=== PATIENT | female | born 1960 | race Caucasian/White ===

== ENCOUNTER 2020-03-07 10:55 | Outpatient (CLI) | payer OTHER, SELFPAY ==
--- NOTE | ~2020-03-07 | MM_ITS ---
EXAMINATION: MM screening amanda BI w anisha HISTORY: Screening mammogram TECHNIQUE: Craniocaudal and mediolateral oblique 3-D tomosynthesis images were obtained and synthetic 2-D images were generated. CAD analysis was submitted and interpreted. COMPARISON: No prior mammogram is available for comparison at this institution. BREAST PARENCHYMAL COMPOSITION: There are scattered areas of fibroglandular density. FINDINGS: Possible new asymmetries are noted bilaterally. Bilateral diagnostic mammography is recomme nded, with ultrasound if required. IMPRESSION: 1. Possible new bilateral mammographic asymmetries 2. Recommend bilateral diagnostic mammogram, with ultrasound if required BI-RADS Category 0: Incomplete: Needs additional imaging evaluation. Reviewed, dictated and finalized at location A.
== END 2020-03-07 10:56 | disposition home or self-care (01) ==
LOC: ANHIMG 10:59
PROVIDERS: PCP Family Medicine; Visit Provider Student in an Organized Health Care Education/Training Program
DX: Z12.31 Encounter for screening mammogram for malignant neoplasm of breast (principal)
CPT/HCPCS: 77063; 77067

== ENCOUNTER 2020-03-19 12:39 | Outpatient (CLI) | payer OTHER, SELFPAY ==
--- NOTE | ~2020-03-19 | MMUS_ITS ---
EXAMINATION: MM diagnostic mammo BI, US breast BI limited HISTORY: Follow-up breast asymmetries TECHNIQUE: Additional 3-D tomosynthesis images of the breasts were performed and synthetic 2-D images were generated. CAD analysis was submitted and interpreted. High resolution bilateral breast ultraso und was performed. COMPARISON: 03/07/2020 FINDINGS: MAMMOGRAPHIC FINDINGS: The breasts are heterogenously dense, which may obscure small masses. The focal asymmetry laterally i n the right breast on CC view is less dense with spot compression views. Focal asymmetries in the upp er central aspect of the left breast are persistent, although no discrete mass is identified. There a re benign calcifications. ULTRASOUND: Right breast ultrasound: At 10:00, 6 cm from the nipple, there is a 4 mm cyst. Left breast ultrasound: At 2:00, 6 cm from the nipple, there is a hypoechoic 3 mm mass which is likely a benign complicated c yst or intramammary lymph node. At 2:00, 5 cm from the nipple there is a 3 mm cyst. There are no susp icious masses in either breast to suggest malignancy. IMPRESSION: 1. Benign bilateral breast findings. No evidence for malignancy. 2. Routine yearly screening mammogram and regular clinical breast examination are recommended. BI-RADS Category 2: Benign finding(s). Reviewed, dictated and finalized at location A. IMPRESSION: 1. Benign bilateral breast findings. No evidence for malignancy. 2. Routine yearly screening mammogram and regular clinical breast examination a re recommended. BI-RADS Category 2: Benign finding(s).
== END 2020-03-19 12:40 | disposition home or self-care (01) ==
PROVIDERS: PCP Family Medicine; Visit Provider Student in an Organized Health Care Education/Training Program
DX: R92.8 Other abnormal and inconclusive findings on diagnostic imaging of breast (principal)
CPT/HCPCS: 76642; 77066

== ENCOUNTER 2021-05-15 10:29 | Outpatient (CLI) | payer BC, SELFPAY ==
--- NOTE | ~2021-05-15 | MM_ITS ---
EXAMINATION: MM screening amanda BI w anisha HISTORY: Screening mammogram TECHNIQUE: Craniocaudal and mediolateral oblique 3-D tomosynthesis images were obtained and synthetic 2-D images were generated. CAD analysis was submitted and interpreted. COMPARISON: 03/19/2020 diagnostic bilateral mammogram and Limited bilateral breast ultrasound examinati on 03/07/2020, 02/03/2019, 01/31/2018 bilateral digital screening mammogram examinations BREAST PARENCHYMAL COMPOSITION: The breasts are heterogeneously dense, which may obscure small masses . FINDINGS: There is no evidence of suspicious mass, calcification, or architectural distortion to sugg est malignancy in either breast. There has been no suspicious interval change. IMPRESSION: 1. No mammographic evidence of malignancy. 2. Recommend routine screening mammography in one year. BI-RADS Category 1: Negative Reviewed, dictated and finalized at location A.
== END 2021-05-15 10:30 | disposition home or self-care (01) ==
LOC: ANHIMG 10:31
PROVIDERS: PCP Family Medicine; Visit Provider Student in an Organized Health Care Education/Training Program
DX: Z12.31 Encounter for screening mammogram for malignant neoplasm of breast (principal)
CPT/HCPCS: 77063; 77067

== ENCOUNTER 2022-06-11 09:49 | Outpatient (CLI) | payer BC, SELFPAY ==
--- NOTE | ~2022-06-11 | MM_ITS ---
EXAMINATION: MM screening amanda BI w anisha HISTORY: Screening TECHNIQUE: Craniocaudal and mediolateral oblique 3-D tomosynthesis images were obtained and synthetic 2-D images were generated. CAD analysis was submitted and interpreted. COMPARISON: Comparison to multiple prior studies sequentially, with oldest reviewed study dated 01/28. BREAST PARENCHYMAL COMPOSITION: The breasts are heterogeneously dense, which may obscure small masses FINDINGS: There is no evidence of suspicious mass, calcification, or architectural distortion to sugg est malignancy in either breast. There has been no suspicious interval change. IMPRESSION: 1. No mammographic evidence of malignancy. 2. Recommend routine screening mammography in one year. BI-RADS Category 1: Negative Reviewed, dictated and finalized at location A.
== END 2022-06-11 09:50 | disposition home or self-care (01) ==
PROVIDERS: Visit Provider Student in an Organized Health Care Education/Training Program
DX: Z12.31 Encounter for screening mammogram for malignant neoplasm of breast (principal)
CPT/HCPCS: 77063; 77067

== ENCOUNTER 2022-07-09 01:32 | Day surgery (SDC) | payer BC, SELFPAY ==
[2022-06-23 13:44] VITALS: BMI 31.7
[2022-07-09 07:40] VITALS: BP 165/85; PULSE 80; RESP 20; TEMP 36.3; O2SAT 100; BMI 32.1
[2022-07-09] MEDS: LACTATED RINGERS 1,000 ML 150 ML IV CONT (07:50)
--- NOTE | 2022-07-09 08:06 | WPDANESEPPF ---
Anes - Initial Pre Proc Eval Procedure: Operation Date: 07/09/22 08:30 Proposed Procedures p Screening Colonoscopy - Davidson Cross MD Date/Time: 07/09/22 08:06 Surgeon: Davidson Cross MD Pre Op Diagnosis: neoplasm screening Patient Data Age: 61 Gender: F Height: 1.65 m Weight: 87.6 kg Last Vital Signs Temp 97.3 F L 07/09/22 07:40 Pulse 80 07/09/22 07:40 Resp 20 07/09/22 07:40 BP 165/85 H 07/09/22 07:40 Pulse Ox 100 07/09/22 07:40 O2 Del Method Room Air 07/09/22 07:40 Allergies Allergy/AdvReac Type Severity Reaction Status Date / Time mold Allergy Unknown Unknown Verified 07/09/22 07:36 ragweed pollen Allergy Unknown Unknown Verified 07/09/22 07:36 Home Medications Medication Instructions Recorded Confirmed Type calcium carbonate 600 mg calcium 600 mg PO DAILY 04/25/20 06/23/22 History (1,500 mg) tablet (Calcium) diltiazem HCl 240 mg See Rx Instructions .Route 05/13/20 06/23/22 Rx capsule,extended release 24 hr .COMPLEX #90 caps (Cartia XT) atorvastatin 20 mg tablet 20 mg PO DAILY 05/29/21 06/23/22 History levocetirizine 5 mg tablet (Xyzal) 5 mg PO DAILY 05/29/21 06/23/22 History metformin 500 mg tablet 500 mg PO DAILY 05/29/21 06/23/22 History fluconazole 100 mg tablet 100 mg PO DAILY 06/02/22 06/23/22 History sodium,potassium,mag sulfates 17.5 See Rx Instructions PO .COMPLEX 06/15/22 Rx gram-3.13 gram-1.6 gram oral soln #354 mL (Suprep Bowel Prep Kit) dextromethorphan-guaifenesin ER 60 1 tablet PO DAILY 06/23/22 06/23/22 History mg-1,200 mg tab,extend release,12hr (Mucinex DM) estradiol 0.01% (0.1 mg/gram) 1 gm vaginal WEEKLY PRN other 06/23/22 06/23/22 History vaginal cream (Estrace) Patient hx anesthesia problems: none Family hx anesthesia problems: none Results Review: All pre-operative results and documents have been reviewed as part of the pre-operative evaluation. [facility] Past Medical History Medical History Abnormal Pap smear of cervix 05/29/21, ASCUS, HPV pos ASCUS with positive high risk HPV cervical SANDY I (cervical intraepithelial neoplasia I) 2020 Diabetes mellitus High cholesterol Hypertension Surgical History Surgical History History of section x1 History of colposcopy 05/31/20, benign, CIN1 History of loop electrical excision procedure (LEEP) 2016 Family History Family History Mother Family history of hypercholesterolemia Hypertension Cerebrovascular accident Family history of type 2 diabetes mellitus Father Family history of type 2 diabetes mellitus Other Family history of coronary artery disease Social History Social History Smoking status: Former smoker Tobacco type: cigarettes Second hand tobacco smoke exposure: No Smoking end date: 10/18/06 Alcohol intake: current Drinks per week: 12 Substance use: unknown Substance use type: does not use Living arrangements: with family Spiritual care concerns: No Anes - Eval Final PreProcedure Day of Procedure 07/09/22 08:06 Patient weight: obese Heart: regular rate and rhythm Lungs: clear to auscultation Airway: Mallampati scale class II Neurological: alert and oriented Last oral intake: >/= 8 hours ASA classification: III Emergent: no Anesthetic plan: proceed Anesthesia type and monitoring: general GIVS and standard monitoring Results Review: All pre-operative results and documents have been reviewed as part of the pre-operative evaluation. Informed Consent: The patient's anesthetic plan and its attendant risks and benefits were discussed with the patient/family/POA. Questions were solicited and answers provided to the satisfaction of the patient/family/POA.
[2022-07-09 08:11] LABS: Glucose Point of Care 115 mg/dl (65-105)
--- NOTE | 2022-07-09 08:20 | PM.IMHP ---
H&P: HPI History of Present Illness Date/Time: 07/09/22 08:20 Chief Complaint: Neoplasia screening. Narrative: This is a 61-year-old white female patient presents for screening colonoscopy. Patient's current weight appetite and bowel movements are normal. She denies abdominal pain. She has had no bleeding. Family history is noncontributory. Patient's last colonoscopy 2013 was unremarkable. Past medical history significant for hemosiderosis. Currently followed by Dr Montanez, director of architecture for phlebotomies intermittently. Review of Systems Review of Systems: Review of systems noncontributory. [facility] Past Medical History Medical History Abnormal Pap smear of cervix 05/29/21, ASCUS, HPV pos ASCUS with positive high risk HPV cervical SANDY I (cervical intraepithelial neoplasia I) 2020 Diabetes mellitus High cholesterol Hypertension Surgical History Surgical History History of section x1 History of colposcopy 05/31/20, benign, CIN1 History of loop electrical excision procedure (LEEP) 2016 Family History Family History Mother Family history of hypercholesterolemia Hypertension Cerebrovascular accident Family history of type 2 diabetes mellitus Father Family history of type 2 diabetes mellitus Other Family history of coronary artery disease Social History Social History Smoking status: Former smoker Tobacco type: cigarettes Second hand tobacco smoke exposure: No Smoking end date: 10/18/06 Alcohol intake: current Drinks per week: 12 Substance use: unknown Substance use type: does not use Living arrangements: with family Spiritual care concerns: No Meds Home Medications and Allergies Home Medications Medication Instructions Recorded Confirmed Type calcium carbonate 600 mg calcium 600 mg PO DAILY 04/25/20 06/23/22 History (1,500 mg) tablet (Calcium) diltiazem HCl 240 mg See Rx Instructions .Route 05/13/20 06/23/22 Rx capsule,extended release 24 hr .COMPLEX #90 caps (Cartia XT) atorvastatin 20 mg tablet 20 mg PO DAILY 05/29/21 06/23/22 History levocetirizine 5 mg tablet (Xyzal) 5 mg PO DAILY 05/29/21 06/23/22 History metformin 500 mg tablet 500 mg PO DAILY 05/29/21 06/23/22 History fluconazole 100 mg tablet 100 mg PO DAILY 06/02/22 06/23/22 History sodium,potassium,mag sulfates 17.5 See Rx Instructions PO .COMPLEX 06/15/22 Rx gram-3.13 gram-1.6 gram oral soln #354 mL (Suprep Bowel Prep Kit) dextromethorphan-guaifenesin ER 60 1 tablet PO DAILY 06/23/22 06/23/22 History mg-1,200 mg tab,extend release,12hr (Mucinex DM) estradiol 0.01% (0.1 mg/gram) 1 gm vaginal WEEKLY PRN other 06/23/22 06/23/22 History vaginal cream (Estrace) Allergies Allergy/AdvReac Type Severity Reaction Status Date / Time mold Allergy Unknown Unknown Verified 07/09/22 07:36 ragweed pollen Allergy Unknown Unknown Verified 07/09/22 07:36 Vital Signs Vital Signs - 24 hr 07/09/22 07:40 Temperature 97.3 F L Pulse Rate 80 Respiratory Rate 20 Blood Pressure 165/85 H Pulse Oximetry 100 Oxygen Delivery Room Air Exam Narrative: Physical exam reveals patient to be alert. Vital signs stable. HEENT exam is unremarkable. Patient is anicteric. Lungs are clear to auscultation and percussion. Heart is without murmur or extra sounds. Abdomen bowel sounds are present soft nontender with no organomegaly. Digital external rectal exam is normal. Assessment and Plan Assessment and plan (1) Encounter for screening colonoscopy: Code(s): Z12.11 - Encounter for screening for malignant neoplasm of colon Status: Acute Assessment and Plan: Patient presents for screening colonoscopy. Appears to be at average ri
[2022-07-09 08:50] VITALS: BP 107/57; PULSE 71; RESP 21; O2SAT 100
[2022-07-09 09:00] VITALS: BP 136/97; PULSE 69; RESP 14; O2SAT 100
[2022-07-09 09:10] VITALS: BP 151/90; PULSE 67; RESP 16; O2SAT 100
== END 2022-07-09 09:13 | disposition home or self-care (01) ==
PROVIDERS: Visit Provider Internal Medicine Gastroenterology
PROC: 0DJD8ZZ Inspection of Lower Intestinal Tract, Via Natural or Artificial Opening Endoscopic (ICD-10-PCS; CPT 45378; principal; 2022-07-09 08:30)
DX: Z12.11 Encounter for screening for malignant neoplasm of colon (principal); K63.5 Polyp of colon; K64.8 Other hemorrhoids; E11.9 Type 2 diabetes mellitus without complications; I10 Essential (primary) hypertension; E78.00 Pure hypercholesterolemia, unspecified; Z87.891 Personal history of nicotine dependence; Z79.84 Long term (current) use of oral hypoglycemic drugs; E66.9 Obesity, unspecified; Z68.32 Body mass index [BMI] 32.0-32.9, adult
CPT/HCPCS: 45385; 82948; 88305; J2704; J7120

== ENCOUNTER 2022-08-18 10:02 | Outpatient (CLI) | payer BC, SELFPAY ==
--- NOTE | ~2022-08-18 | DEXA_ITS ---
Bone Density Report Name: ANGELA COLE Age: 62 Sex: Female Ethnicity: White Date of : 1960 Indication: postmenopausal; screening for osteoporosis; Referring Provider: DIANNA WATTERS Study: Bone densitometry was performed. Exam Date: August 18, 2022 Accession number: [id number] Bone Density: Region BMD T-score Z-score Classification AP Spine(L1-L4) 1.081 0.3 1.7 Normal Femoral Neck (Left) 0.921 0.7 1.9 Normal Total Hip (Left) 1.083 1.2 2.1 Normal Femoral Neck (Right) 0.894 0.4 1.7 Normal Total Hip (Right) 1.014 0.6 1.5 Normal Total Hip Mean 1.049 0.9 1.8 Normal World Health Organization criteria for BMD impression classify patients as: Normal (T-score at or above -1.0), Osteopenia (T-score between -1.0 and -2.5), or Osteoporosis (T-score at or below -2.5). 10-year Fracture Risk: FRAX not reported because: All T-scores for Spine Total, Hip Total, Femoral Neck at or above -1.0 Previous Exams: Region Exam Age BMD T-score BMD Change BMD Change Date g/cm2 vs Baseline vs Previous AP Spine (L1-L4) 08/18/2022 62 1.081 0.3 0.034 (3.2%)* 0.081 (8.1%)* 01/31/2018 57 1.000 -0.4 -0.048 (-4.5%) -0.048 (-4.5%) 01/24/2015 54 1.048 0.0 Total Hip(Left) 08/18/2022 62 1.083 1.2 -0.079 (-6.8%) -0.099 (-8.3%) 01/31/2018 57 1.182 2.0 0.020 (1.7%) 0.020 (1.7%) 01/24/2015 54 1.162 1.8 Total Hip(Right) 08/18/2022 62 1.014 0.6 -0.020 (-1.9%) -0.028 (-2.7%) 01/31/2018 57 1.043 0.8 0.009 (0.8%) 0.009 (0.8%) 01/24/2015 54 1.034 0.8 *Denotes significance at 95% confidence level, LSC for AP Spine = 0.022 g/cm2, LSC for Total Hip = 0.027 g/cm2 Clinical Information Provided by Patient: Has used the following medications: Calcium Patient maximum height was 65 Menopause Age: 47 No regular weight bearing exercise Onset of menses at age 15 Number of children 1 Impression: The patient has normal bone mass. The BMD for the Total Hip(Left) decreased, changing by -8.3% since the last DXA exam. The BMD for the Total Hip(Right) decreased, changing by -2.7% since the last DXA exam. Discussion: BONE DENSITY IS ABOVE THE MINIMUM DESIRABLE LEVEL AT ALL SKELETAL SITES TESTED. This patient?s bone mineral density is above the minimum desirable level (T-score -1.0 or better) at all sites measured. The patient should follow a healthful lifestyle (good nutrition with adequate calcium and vitami
== END 2022-08-18 10:03 | disposition home or self-care (01) ==
PROVIDERS: Visit Provider Student in an Organized Health Care Education/Training Program
DX: Z78.0 Asymptomatic menopausal state (principal)
CPT/HCPCS: 77080

== ENCOUNTER 2022-10-06 09:52 | Outpatient (CLI) | payer BC, SELFPAY ==
[2022-10-06 10:58] LABS: Anion Gap 8 mmol/L (8-16); Blood Urea Nitrogen 24 mg/dL (7-17); Calcium 9.9 mg/dL (8.4-10.2); Carbon Dioxide 28 mmol/L (22-30); Chloride 101 mmol/L (98-107); Estimated Glomerular Filt Rate 57; Glucose 156 mg/dL (65-110); Potassium 3.7 mmol/L (3.4-5.0); Sodium 137 mmol/L (137-145)
== END 2022-10-06 09:53 | disposition home or self-care (01) ==
PROVIDERS: Anesthesiology; Visit Provider Obstetrics & Gynecology
DX: E11.9 Type 2 diabetes mellitus without complications (principal); Z01.818 Encounter for other preprocedural examination
CPT/HCPCS: 36415; 80048

== ENCOUNTER 2022-10-21 01:26 | Day surgery (SDC) | payer BC, SELFPAY ==
[2022-10-05 15:28] VITALS: BMI 31.6
--- NOTE | 2022-10-05 15:29 | SUR.PREOP ---
Report to the Outpatient Waiting Room, entrance under the green pavilion located off [facility], at time _0715 on date _10/21/22 . Planned Procedure Time: __0915. Time changes happen often and if your time is changed the preop area will call you the afternoon before. - You and your visitor will be asked to self-screen and do not enter if you have any COVID symptoms. - Only one visitor is requested with a max of two and NO children visitors are allowed at this time. - The patient visitor may be requested to leave or wait in car when not with patient due to distancing restrictions. - A mask is optional within the hospital. Patients may have clear liquids (water, carbonated beverages, clear teas, apple juice) until 3 hours prior to surgery with a maximum of 20 ounces. - No food from midnight until time of surgery - Infants may have breast milk until 4 hours before surgery, infant formula 6 hours prior to surgery. - Children will be allowed to drink immediately following surgery. If applicable, please bring a bottle or sippy cup to assist with drinking. Juice, water, soda, and popsicles are readily available. For infants on formula, please bring formula the day of surgery. Pacifiers are allowed. Take the following medications with a SIP of water the morning of surgery: __diltiazem Medications to discontinue per physician ___calcium Date to take last dose__10/18/22 Please no make-up, nail slovak, hairspray, perfume, deodorant, or body powder the day of surgery. No jewelry (including any body piercings) or valuables the day of surgery, leave them at home. Please take a shower or bath the night before, or the morning of, surgery with an antibacterial soap. Wear comfortable, loose fitting clothing. Children are encouraged to wear pajamas. - Jewelry must be removed prior to entering the operating room. Rings and piercings that are not removed may be cut off. - The hospital will not accept responsibility for valuables. - Please leave all valuables, including medications, at home the day of surgery. If you are going home after surgery, a licensed motor driver must drive you home. - NO public transportation without another adult if you receive anesthesia. - We recommend that an adult stay with you for 24 hours following discharge. - We also recommend that you do not drive, make important decision, drink alcoholic beverages, or take any drugs that were not prescribed by your health care provider for at least 24 hours after your discharge time. For Pediatric surgeries, we recommend two adults accompany the child home. Follow any additional instructions given to you from your surgeon. If you or anyone in your household have experienced Covid symptoms in the past week, please notify your surgeon or the nurse liaison at the phone number below for possible testing. Telephone instructions given to _lydia espinoza and asked if any additional questions and then verbalized understanding. Patient advised to call surgeon office or pre surgery nurse liaison [phone] if any additional questions.
--- NOTE | 2022-10-20 14:13 | WPDANESEPPF ---
Anes - Initial Pre Proc Eval Procedure: Operation Date: 10/21/22 09:15 Proposed Procedures p Loop Electrical Excision Procedure - Aj Phelps MD Date/Time: 10/20/22 14:13 Surgeon: Aj Phelps MD Pre Op Diagnosis: ascus positive hpv Patient Data Age: 62 Gender: F Height: 1.65 m Weight: 86.36 kg Allergies Allergy/AdvReac Type Severity Reaction Status Date / Time mold AdvReac Mild Congested Verified 10/21/22 07:30 ragweed pollen AdvReac Mild Congested Verified 10/21/22 07:30 Home Medications Medication Instructions Recorded Confirmed Type calcium carbonate 600 mg calcium 600 mg PO DAILY 04/25/20 10/21/22 History (1,500 mg) tablet (Calcium) diltiazem HCl 240 mg See Rx Instructions .Route 05/13/20 10/21/22 Rx capsule,extended release 24 hr .COMPLEX #90 caps (Cartia XT) atorvastatin 20 mg tablet 20 mg PO DAILY 05/29/21 10/21/22 History levocetirizine 5 mg tablet (Xyzal) 5 mg PO DAILY 05/29/21 10/21/22 History metformin 500 mg tablet 500 mg PO DAILY 05/29/21 10/21/22 History estradiol 0.01% (0.1 mg/gram) 1 gm vaginal WEEKLY PRN other 06/23/22 10/21/22 History vaginal cream (Estrace) hydrochlorothiazide 25 mg tablet 25 mg PO DAILY 07/14/22 10/21/22 History losartan 100 mg tablet 100 mg PO DAILY 07/14/22 10/21/22 History Patient hx anesthesia problems: none Family hx anesthesia problems: none Results Review: All pre-operative results and documents have been reviewed as part of the pre-operative evaluation. [facility] Past Medical History Medical History (Updated 10/20/22 @ 14:14 by Angel Hartley MD) Abnormal Pap smear of cervix 05/29/21, ASCUS, HPV pos ASCUS with positive high risk HPV cervical SANDY I (cervical intraepithelial neoplasia I) 2020 Diabetes mellitus High cholesterol Hypertension Obesity Surgical History Surgical History History of section x1 History of colposcopy 05/31/20, benign, CIN1 History of loop electrical excision procedure (LEEP) 2016 Family History Family History Mother Family history of hypercholesterolemia Hypertension Cerebrovascular accident Family history of type 2 diabetes mellitus Father Family history of type 2 diabetes mellitus Other Family history of coronary artery disease Social History Social History Smoking status: Former smoker Tobacco type: cigarettes Second hand tobacco smoke exposure: No Smoking end date: 10/18/06 Additional smoking assessment comments: smoking cigarettes 7 years 1 ppd Alcohol intake: current Drinks per week: 20 Substance use: unknown Substance use type: does not use Living arrangements: with family Spiritual care concerns: No Anes - Eval Final PreProcedure Day of Procedure 10/20/22 14:13 Patient weight: obese Heart: regular rate and rhythm Lungs: clear to auscultation Airway: Mallampati scale class II Neurological: alert and oriented Last oral intake: >/= 8 hours ASA classification: III Emergent: no Anesthetic plan: proceed Anesthesia type and monitoring: general GIVS and LMA and standard monitoring Results Review: All pre-operative results and documents have been reviewed as part of the pre-operative evaluation. Informed Consent: The patient's anesthetic plan and its attendant risks and benefits were discussed with the patient/family/POA. Questions were solicited and answers provided to the satisfaction of the patient/family/POA.
--- NOTE | 2022-10-21 06:28 | PM.IMHP ---
H&P: HPI History of Present Illness Date/Time: 10/21/22 06:28 Chief Complaint: Persistent dysplasia. 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 She had a prior LEEP in 2016. She has had colposcopy biopsies which the last biopsy no dysplasia, TZ not obtained. Discussed possibility of a dysplastic lesion deeper in the cervix. She has been given option of continue colposcopy and biopsies if paps continue abnormal. She agrees to LEEP. Review of Systems Review of Systems: All systems reviewed & are unremarkable except as noted in HPI and below Constitutional: Constitutional: Reports no additional constitutional complaints Eyes: Eyes: Reports no additional eye complaints Cardiovascular: Cardiovascular: Reports no additional cardiovascular complaints Respiratory: Respiratory: Reports no additional respiratory complaints Gastrointestinal: Gastrointestinal: Reports no additional gastrointestinal complaints Genitourinary: Genitourinary: Reports no additional female genitourinary complaints and Reports as per HPI Integumentary/Breasts: Skin/Breast: Reports system reviewed and no additional complaints, except as docu Neurologic: Reports system reviewed and no additional complaints, except as documented Psychiatric: Psychiatric: Reports no additional psychiatric complaints Hematologic/Lymphatic: Hematologic/Lymphatic: Reports no additional hematologic/lymphatic complaints [facility] Past Medical History Medical History (Updated 10/20/22 @ 14:14 by Angel Hartley MD) Abnormal Pap smear of cervix 05/29/21, ASCUS, HPV pos ASCUS with positive high risk HPV cervical SANDY I (cervical intraepithelial neoplasia I) 2020 Diabetes mellitus High cholesterol Hypertension Obesity Surgical History Surgical History History of section x1 History of colposcopy 05/31/20, benign, CIN1 History of loop electrical excision procedure (LEEP) 2016 Family History Family History Mother Family history of hypercholesterolemia Hypertension Cerebrovascular accident Family history of type 2 diabetes mellitus Father Family history of type 2 diabetes mellitus Other Family history of coronary artery disease Social History Social History Smoking status: Former smoker Tobacco type: cigarettes Second hand tobacco smoke exposure: No Smoking end date: 10/18/06 Additional smoking assessment comments: smoking cigarettes 7 years 1 ppd Alcohol intake: current Drinks per week: 20 Substance use: unknown Substance use type: does not use Living arrangements: with family Spiritual care concerns: No Meds Home Medications and Allergies Home Medications Medication Instructions Recorded Confirmed Type calcium carbonate 600 mg calcium 600 mg PO DAILY 04/25/20 10/06/22 History (1,500 mg) tablet (Calcium) diltiazem HCl 240 mg See Rx Instructions .Route 05/13/20 10/06/22 Rx capsule,extended release 24 hr .COMPLEX #90 caps (Cartia XT) atorvastatin 20 mg tablet 20 mg PO DAILY 05/29/21 10/06/22 History levocetirizine 5 mg tablet (Xyzal) 5 mg PO DAILY 05/29/21 10/06/22 History metformin 500 mg tablet 500 mg PO DAILY 05/29/21 10/06/22 History estradiol 0.01% (0.1 mg/gram) 1 gm vaginal WEEKLY PRN other 06/23/22 10/06/22 History vaginal cream (Estrace) hydrochlorothiazide 25 mg tablet 25 mg PO DAILY 07/14/22 10/06/22 History losartan 100 mg tablet 100 mg PO DAILY 07/14/22 10/06/22 History Allergies Allergy/AdvReac Type Severity Reaction Status Date / Time mold AdvReac Mild Congested Verified 10/21/22 07:30 ragweed pollen AdvReac Mild Congested Verified 10/21/22 07:30 Exam Const: General: comfortable and no acute distress Orientation/consciousness: oriented to perso
[2022-10-21 07:26] VITALS: BP 175/82; PULSE 89; RESP 18; TEMP 36.3; O2SAT 99
--- NOTE | 2022-10-21 07:35 | WPDHPUPDATE1 ---
History and Physical Update Update Date/Time: 10/21/22 07:35 History and Physical has been reviewed, including an updated exam of the patient. There are NO changes in the patient's condition. Risks, benefits, and alternatives have been discussed and questions answered. Patient agrees to proceed with procedure.
[2022-10-21] MEDS: LACTATED RINGERS 1,000 ML 30 ML IV CONT (07:44)
[2022-10-21] MEDS: ACETAMINOPHEN 500 MG TABLET 1000 MG PO (07:45)
[2022-10-21 07:48] LABS: Glucose Point of Care 169 mg/dl (65-105)
[2022-10-21] MEDS: ceFAZolin 2 GM/D5W 50 ML 2 GM/50 ML BAG IVPB (09:20)
[2022-10-21 09:50] VITALS: BP 101/52; PULSE 71; RESP 16; O2SAT 94
--- NOTE | 2022-10-21 09:50 | PM.OP ---
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 LEEP 2. LEEP endocervical) Complications: No immediate complications Condition: Stable Disposition: Same day
[2022-10-21 09:55] LABS: Glucose Point of Care 172 mg/dl (65-105)
[2022-10-21 10:14] VITALS: BP 113/57; PULSE 65; RESP 16
[2022-10-21 10:35] VITALS: BP 140/68
--- NOTE | 2022-10-21 21:35 | W.PM.PROC2 ---
Procedure Note - Detailed Date of Procedure 10/21/22 Pre-op Diagnosis Persistent low grade pap smear. Post-op Diagnosis Same Procedure Performed Loop electrosurgical excision procedure Surgeon Aj Phelps MD Anesthesia MAC and Local Description of Procedure The patient was taken to the OR where adequate IV sedation was administered. She was then prepped and draped in the usual sterile fashion and placed in the dorsal lithotomy position. A Graves speculum was placed in the vagina. Lugol?s solution was painted along the entire cervix and vaginal wall. No significant areas of non-uptake were noted to be around the entire squamocolumnar junction. 10 cc of lidocaine with epinephrine was injected at surgical site. The large loop electrode was used to enclose the external cervical os. The smallest loop electrode was used to obtain a top hat for excision of the endocervix. The bed of the excised cervical tissue along the cervix was cauterized using the roller ball. Hemostasis was noted. All instruments were removed from vagina at this point. The patient tolerated the procedure well without complication and was taken to the recovery room in stable condition. Estimated Blood Loss 5 Drains No Packing No Pathology Yes (LEEP, LEEP endocervix) Complications No immediate complications Condition Stable Disposition Same day [facility] Billing Surgery - Charge Forward: Surgery Billing
== END 2022-10-21 10:50 | disposition home or self-care (01) ==
PROVIDERS: Visit Provider Obstetrics & Gynecology
PROC: 0UBC7ZZ Excision of Cervix, Via Natural or Artificial Opening (ICD-10-PCS; CPT 57522; principal; 2022-10-21 09:15)
DX: N87.0 Mild cervical dysplasia (principal); I10 Essential (primary) hypertension; E11.9 Type 2 diabetes mellitus without complications; E78.00 Pure hypercholesterolemia, unspecified; E66.9 Obesity, unspecified; Z68.33 Body mass index [BMI] 33.0-33.9, adult; Z79.84 Long term (current) use of oral hypoglycemic drugs; Z87.891 Personal history of nicotine dependence
CPT/HCPCS: 57522; 82948; 88307; A9270; J0690; J2704; J3010; J7120

== ENCOUNTER 2023-09-20 09:59 | Outpatient (CLI) | payer BC, SELFPAY ==
--- NOTE | ~2023-09-20 | MM_ITS ---
EXAMINATION: MM screening [facility] BI w anisha HISTORY: Screening mammogram TECHNIQUE: Craniocaudal and mediolateral oblique 3-D tomosynthesis images were obtained and synthetic 2-D images were generated. CAD analysis was submitted and interpreted. COMPARISON: 06/11/2022, 05/15/2021, 03/19/2020, 03/07/2020 BREAST PARENCHYMAL COMPOSITION: There are scattered areas of fibroglandular density. FINDINGS: No suspicious mass, calcification, or architectural distortion are identified in either sim ast to suggest malignancy. There has been no suspicious interval change. IMPRESSION: 1. No mammographic evidence of malignancy. 2. Recommend routine screening mammography in one year. BI-RADS Category 1: Negative Reviewed, dictated and finalized at location A. ANET SUPPORT
== END 2023-09-20 10:00 | disposition home or self-care (01) ==
LOC: ANHIMG 10:01
PROVIDERS: Visit Provider Obstetrics & Gynecology
DX: Z12.31 Encounter for screening mammogram for malignant neoplasm of breast (principal)
CPT/HCPCS: 77063; 77067

== ENCOUNTER 2024-09-25 13:55 | Outpatient (CLI) | payer BC, SELFPAY ==
--- NOTE | ~2024-09-25 | MM_ITS ---
EXAMINATION: MM screening [facility] BI w anisha HISTORY: Screening TECHNIQUE: Craniocaudal and mediolateral oblique 3-D tomosynthesis images were obtained and synthetic 2-D images were generated. CAD analysis was submitted and interpreted. COMPARISON: Comparison to multiple prior studies sequentially, with oldest reviewed study dated 02/03. BREAST PARENCHYMAL COMPOSITION: Dense: The breasts are heterogeneously dense, which may obscure small masses FINDINGS: There is no evidence of suspicious mass, calcification, or architectural distortion to sugg est malignancy in either breast. There has been no suspicious interval change. IMPRESSION: 1. No mammographic evidence of malignancy. 2. Recommend routine screening mammography in one year. BI-RADS Category 1: Negative Reviewed, dictated and finalized at location B. ITY SPECIALIST
== END 2024-09-25 13:56 | disposition home or self-care (01) ==
LOC: ANHIMG 13:57
PROVIDERS: PCP Nurse Practitioner Family; Visit Provider Obstetrics & Gynecology
DX: Z12.31 Encounter for screening mammogram for malignant neoplasm of breast (principal)
CPT/HCPCS: 77063; 77067

== ENCOUNTER 2025-10-08 13:27 | Outpatient (CLI) | payer BC, SELFPAY ==
--- NOTE | ~2025-10-08 | DEXA_ITS ---
Bone Density Report Name: ANGELA COLE Age: 65 Sex: Female Ethnicity: White Date of : 1960 Indication: postmenopausal; screening for osteoporosis; parental hip fracture; Referring Provider: NAOMIE CARRERO Study: Bone densitometry was performed. Exam Date: October 08, 2025 Accession number: [id number] Bone Density: Region BMD T-score Z-score Classification AP Spine(L1-L4) 1.092 0.4 2.0 Normal Femoral Neck (Left) 0.845 0.0 1.4 Normal Total Hip (Left) 0.956 0.1 1.2 Normal Femoral Neck (Right) 0.871 0.2 1.6 Normal Total Hip (Right) 0.918 -0.2 0.9 Normal Total Hip Mean 0.937 -0.1 1.1 Normal World Health Organization criteria for BMD impression classify patients as: Normal (T-score at or above -1.0), Osteopenia (T-score between -1.0 and -2.5), or Osteoporosis (T-score at or below -2.5). 10-year Fracture Risk: FRAX not reported because: All T-scores for Spine Total, Hip Total, Femoral Neck at or above -1.0 Previous Exams: Region Exam Age BMD T-score BMD Change BMD Change Date g/cm2 vs Baseline vs Previous AP Spine (L1-L4) 10/08/2025 65 1.092 0.4 0.044 (4.2%)* 0.011 (1.0%) 08/18/2022 62 1.081 0.3 0.034 (3.2%)* 0.081 (8.1%)* 01/31/2018 57 1.000 -0.4 -0.048 (-4.5%) -0.048 (-4.5%) 01/24/2015 54 1.048 0.0 Total Hip(Left) 10/08/2025 65 0.956 0.1 -0.206 (-17.7% -0.127 (-11.7% 08/18/2022 62 1.083 1.2 -0.079 (-6.8%) -0.099 (-8.3%) 01/31/2018 57 1.182 2.0 0.020 (1.7%) 0.020 (1.7%) 01/24/2015 54 1.162 1.8 Total Hip(Right) 10/08/2025 65 0.918 -0.2 -0.115 (-11.2% -0.096 (-9.4%) 08/18/2022 62 1.014 0.6 -0.020 (-1.9%) -0.028 (-2.7%) 01/31/2018 57 1.043 0.8 0.009 (0.8%) 0.009 (0.8%) 01/24/2015 54 1.034 0.8 *Denotes significance at 95% confidence level, LSC for AP Spine = 0.022 g/cm2, LSC for Total Hip = 0.027 g/cm2 Clinical Information Provided by Patient: Parent has had a hip fracture Has used the following medications: Calcium Patient maximum height was 65 Menopause Age: 47 No regular weight bearing exercise Does not regularly consume dairy products Drinks caffeinated beverages Onset of menses at age 15 Number of children 1 Impression: The patient has normal bone mass. The patient has risk factors, including: parental hip fracture. The BMD for the Total Hip(Left) decreased, changing by -11.7% since the last DXA exam. The BMD for the Total Hip(Right) decreased, changing by -9.4% since the last DXA exam. Discussion: BONE DENSITY IS ABOVE THE MINIMUM DESIRABLE LEVEL AT ALL SKELETAL SITES TESTED. This patient?s bone mineral density is above the minimum desirable level (T-score -1.0 or better) at all sites measured. The patient should follow a healthful lifestyle (good nutrition with adequate calcium and vitamin D, and appropriate weight-bearing exercise). Follow-Up: Consider repeating this study in 3 to 4 years to reassess this patient's status, or sooner if there is some new clinical indication. Reported by: BETINA on 10/08/2025 2:09:00 PM. Reviewed, dictated and finalized at location A.
--- OUTSIDE RECORDS SUMMARY | 2025-10-08 15:11 | XMS_ITS | Encounter Summary ---
Author Organization [facility] System Address [facility] [place] [address] Care Team Providers Care Tool Crib Attendant Name Role Phone Inés Lewis BUSINESS SOLUTIONS ANALYST Primary Care Provider Edith Rahman BUSINESS SOLUTIONS ANALYST Primary Care Provider [phone] Encounter Details Date Type Department Care Team (Late st Contact Info) Description 02/28/2024 [employer] Message Enc [address] [place], [place] [id number] Inés Lewis, BUSINESS SOLUTIONS ANALYST Diabetes shot medicine Social History Tobacco Use Types Packs/Day Years Used Date Smoking Tobacco: Former Smokeless Tobacco: Never Comments:10 years ago Alcohol Use Standard Drinks/Week Comments Yes 20 (1 standard drink = 0.6 oz pu re alcohol) AUDIT-C Answer Date Recorded Q1: How often do you have a drink containing alc ohol? 2-3 times a week 02/05/2021 Q2: How many drinks containi ng alcohol do you have on a typical day when you are drinking? 5 or 6 02/05/2021 Q3: How often do you have si x or more drinks on one occasion? Monthly 02/05/2021 PHQ-2 Answer Date Recorded Patient Health Questionnaire-2 Score 0 02/03/2023 Comments No Sex and Gender Information Value Date Recorded Sex Assigned at Female 02/21/2025 10:09 AM CDT Legal Sex Female 7:08 PM CDT Gender Identity Not on file Sexual Orientation Not on file documented as of this encounter Plan of Treatment Not on file documented as of this encounter Visit Diagnoses Not on filedocumented in this encounter Additional Health Concerns Infection Onset Date Last Indicated Resolved Time COVID-19 Rule Out 10/26/2024 10/26/2024 10/26/2024 10:16 AM CHIEF RISK OFFICER Assessment Noted Time PHQ-9 Depression Total Score: 0 12/03/19 10:10 AM CHIEF RISK OFFICER documented as of this encounter Care Teams Tool Crib Attendant Relationship Specialty Start Date End Date Inés Lewis FNP PCP - General FAMILY PRACTICE 07/09/20 05/16/24 Edith Bradley FNP PCP - General Nurse Practitioner Family 05/17/24 documented as of this encounter
--- OUTSIDE RECORDS SUMMARY | 2025-10-08 15:11 | XMS_ITS | Encounter Summary ---
Author Organization [facility] System Address [facility] [place] [address] Care Team Providers Care Staging Technician Name Role Phone Inés Lewis FLUE DUST LABORER Primary Care Provider Edith Rahman FLUE DUST LABORER Primary Care Provider [phone] Encounter Details Date Type Department Care Team (Late st Contact Info) Description 06/02/[address] [id number] Inés Lewis, FLUE DUST LABORER Social History Tobacco Use Types Packs/Day Years Used Date Smoking Tobacco: Former Smokeless Tobacco: Never Comments:10 years ago Alcohol Use Standard Drinks/Week Comments Yes 0 (1 standard drink = 0.6 oz pur e alcohol) AUDIT-C Answer Date Recorded Q1: How often do you have a drink containing alc ohol? 2-3 times a week 02/05/2021 Q2: How many drinks containi ng alcohol do you have on a typical day when you are drinking? 5 or 6 02/05/2021 Q3: How often do you have si x or more drinks on one occasion? Monthly 02/05/2021 PHQ-2 Answer Date Recorded PHQ-2 Score - If the patient scores above 3, please move on to questions 3-9 0 06/03/2022 Comments No Sex and Gender Information Value Date Recorded Sex Assigned at Female 02/21/2025 10:09 AM CDT Legal Sex Female 7:08 PM CDT Gender Identity Not on file Sexual Orientation Not on file COVID-19 Exposure Response Date Recorded In the last 10 days, have yo u been in contact with someone who was confirmed or suspected to have Coronavirus/COVID-19? No / Unsure 06/03/2022 9:48 AM CDT documented as of this encounter Plan of Treatment Not on file documented as of this encounter Visit Diagnoses Not on filedocumented in this encounter Additional Health Concerns Infection Onset Date Last Indicated Resolved Time COVID-19 Rule Out 10/26/2024 10/26/2024 10/26/2024 10:16 AM PROOF LOAD MECHANIC Assessment Noted Time PHQ-9 Depression Total Score: 0 12/03/19 10:10 AM PROOF LOAD MECHANIC documented as of this encounter Care Teams Staging Technician Relationship Specialty Start Date End Date Inés Lewis FNP PCP - General FAMILY PRACTICE 07/09/20 05/16/24 Edith Bradley FNP PCP - General Nurse Practitioner Family 05/17/24 documented as of this encounter
--- OUTSIDE RECORDS SUMMARY | 2025-10-08 15:11 | XMS_ITS | Encounter Summary ---
Author Organization [facility] System Address [facility] [place] [address] Care Team Providers Care Towel Rolling Machine Operator Name Role Phone Richard Lewiscesario Loera HOSPICE CARE TRANSITIONS COORDINATOR Primary Care Provider Edith Rahman HOSPICE CARE TRANSITIONS COORDINATOR Primary Care Provider [phone] Encounter Details Date Type Department Care Team (Late st Contact Info) Description 11/30/2020 [employer] Message Enc [address] [phone] Ivelisse Cleaning FNP RE: Test Results Social History Tobacco Use Types Packs/Day Years Used Date Smoking Tobacco: Former Smokeless Tobacco: Never Comments:10 years ago Alcohol Use Standard Drinks/Week Comments Yes 0 (1 standard drink = 0.6 oz pur e alcohol) PHQ-2 Answer Date Recorded PHQ-2 Score 0 07/09/2020 Comments No Sex and Gender Information Value Date Recorded Sex Assigned at Female 02/21/2025 10:09 AM CDT Legal Sex Female 7:08 PM CDT Gender Identity Not on file Sexual Orientation Not on file COVID-19 Exposure Response Date Recorded In the last month, have you been in contact with someone who was confirmed or suspected to have Coronavirus / COVID-19? No / Unsure 11/29/2020 10:49 AM BRUSH FILLER HAND documented as of this encounter Plan of Treatment Not on file documented as of this encounter Visit Diagnoses Not on filedocumented in this encounter Additional Health Concerns Infection Onset Date Last Indicated Resolved Time COVID-19 Rule Out 11/29/2020 11/29/2020 11/30/2020 4:30 PM BRUSH FILLER HAND COVID-19 Rule Out 10/26/2024 10/26/2024 10/26/2024 10:16 AM BRUSH FILLER HAND documented as of this encounter Care Teams Towel Rolling Machine Operator Relationship Specialty Start Date End Date Inés Lewis FNP PCP - General FAMILY PRACTICE 07/09/20 05/16/24 Edith Bradley FNP PCP - General Nurse Practitioner Family 05/17/24 documented as of this encounter
--- OUTSIDE RECORDS SUMMARY | 2025-10-08 15:11 | XMS_ITS | Clinical Summary ---
Author Organization [facility] Address [address] [place] [address] Care Team Providers Care Brick Offbearer Name Role Phone Francesco MontanezElizabeth DO Unavailable [phone] Inés Lewis ECONOMIC DEVELOPMENT COORDINATOR Primary Care Provider + Allergies No known active allergies Medications olopatadine (PATADAY) 0.2 % ophthalmic solution INSTILL 1 DROP INTO EACH EYE ONCE DAILY 12 07/10/20 19 Active calcium carbonate (OS-ALMAS) 1,500 mg (600 mg of elemental calcium) tablet Take 600 mg by mouth daily Active guaiFENesin-d extromethorph an ER (MUCINEX DM) 600-30 mg tablet extended release 12 hr Take 1 tablet by mouth daily Active hydroCHLOROth iazide (HYDRODIURIL) 25 mg tablet Take 1 tablet (25 mg total) by mouth daily 07/19/20 20 Active losartan (COZAAR) 100 mg tablet Take 1 tablet (100 mg total) by mouth daily 07/19/20 20 Active atorvastatin (LIPITOR) 20 mg tablet 08/31/20 21 Active metFORMIN XR (GLUCOPHAGE XR) 500 mg 24 hr tablet 09/07/20 21 Active azelastine (ASTELIN) 137 mcg (0.1 %) nasal spray Administer 1 spray into affected nostril(s) 2 (two) times a day 12/06/19 24 Active Farxiga 10 mg tablet Take 1 tablet (10 mg total) by mouth daily 09/06/20 24 Active estradioL (ESTRACE) 0.01 % (0.1 mg/gram) vaginal cream as needed 08/04/20 Active fexofenadine (CAROLINE) 180 mg tablet Take 1 tablet (180 mg total) by mouth daily 12/06/19 Active polyethylene glycol (MIRALAX) 17 gram/dose bulk powder Take 17 g by mouth daily 07/22/20 Active potassium chloride ER 20 mEq CR tablet Take 1 tablet (20 mEq total) by mouth daily 07/22/20 Active Mounjaro 5 mg/0.5 mL pen injector INJECT 1 SYRINGE SUBCUTANEOUSLY ONCE A WEEK Active diltiazem (TIAZAC) 240 mg 24 hr capsule Take 1 capsule (240 mg total) by mouth daily 09/06/20 Active fluconazole (DIFLUCAN) 150 mg tablet TAKE 2 TABLETS BY MOUTH EVERY WEEK 09/14/202024 Discontinued Active Problems Problem Noted Date Diagnosed Date Hemochromatosis, hereditary 08/28/2020 Elevated ferritin level 08/09/2019 Encounters Date Type Department Care Team Description 09/28/2025 9:00 AM MINE INSPECTOR FEDERAL Office Visit [facility] [address] [place] [phone] Reynaldo Griffin PA Hemochromatosis, hereditary (Primary Dx) 09/28/2025 8:30 AM MINE INSPECTOR FEDERAL Lab [facility] [address] [address] Hemochromatosis, hereditary from Last 3 Months Immunizations Immunization Administration Dates Next Due TD Preservative Free 05/25/2016 Tdap 07/01/2006 Surgical History Surgery Date Site/Laterality Comments SECTION COLON SURGERY Medical History Medical History Date Comments Hypertension Hypercholesteremia Seasonal allergic rhinitis Family History Medical History Relation Name Comments Testicular cancer Brother Heart attack Father Stroke Father Relation Name Status Comments Brother Father Mother Social History Tobacco Use Types Packs/Day Years Used Date Smoking Tobacco: Former Cigarettes 0.1 7 1 997 - 2004 Smokeless Tobacco: Never Alcohol Use Standard Drinks/Week Comments Yes 0 (1 standard drink = 0.6 oz pur e alcohol) AUDIT-C Answer Date Recorded Q1: How often do you have a drink containing alc ohol? Monthly or less 09/28/2025 Q2: How many drinks containi ng alcohol do you have on a typical day when you are drinking? 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 on file Not on file Not on file Last Filed Vital Signs Vital Sign Reading Time Taken Comments Blood Pressure 132/80 09/28/2025 9:26 AM MINE INSPECTOR FEDERAL Pulse 82 09/28/2025 9:26 AM MINE INSPECTOR FEDERAL Temperature 36.7 C (98.1 F) 09/28/2025 9:26 AM MINE INSPECTOR FEDERAL Respiratory Rate 18 09/28/2025 9:26 AM MINE INSPECTOR FEDERAL Oxygen Saturation 98% 09/28/2025 9:26 AM MINE INSPECTOR FEDERAL Inhaled Oxygen Concentration - - Weight 75.4 kg (166 lb 3.6 oz) 09/28/2025 9:26 A M MINE INSPECTOR FEDERAL Height 170 cm (5' 6.93) 09/28/2025 9:26 AM MINE INSPECTOR FEDERAL Body Mass Index 26.09 09/28/2025 9:26 AM MINE INSPECTOR FEDERAL Plan of Treatment Health Maintenance Due Date Last Done Comments Breast Cancer Screening-Mammogram 1960 Cervical Cancer Screening 1960 Colon Cancer Screening-Colonoscopy 1960 Depression Screening 1960 Hepatitis C Screening 1960 Hepatitis B Screening 1980 Regular Well Visit/Exam 18-64 1980 Influenza Vaccine (#1) 2025 DTaP/Tdap/Td Vaccine (3 - Td or Tdap) 05/25/2026 05/25/2016, 07/01/2006 Zoster Vaccine Completed 06/29/2022, 04/30/2022 Pneumococcal vaccine <65 Aged Out No longer eligible based on patient's age to complete this topic Procedures Procedure Name Priority Date/Time Associated Diagnosis Comments DIFFERENTIAL AUTO Routine 09/28/2025 9:1 3 AM MINE INSPECTOR FEDERAL Hemochromatosis, hereditary CBC WITH AUTO DIFFERENTIAL Routine 09/28/2025 9:13 AM MINE INSPECTOR FEDERAL Hemochromatosis, hereditary FERRITIN Routine 09/28/2025 9:13 AM MINE INSPECTOR FEDERAL Hemochromatosis, hereditary from Last 3 Months Results * Differential, auto (09/28/2025 9:13 AM MINE INSPECTOR FEDERAL) Neutrophil abs 3.76 1.50 - 6.50 K/cumm Comment:Testing performed by : [address] [address] Imm gran abs 0.05 0.00 - 0.10 K/cumm [facility] Comment:Testing performed by : [address] [address] Lymphocyte abs 1.22 0.80 - 3.30 K/cumm [facility] Comment:Testing performed by : [address] [address] Monocyte abs 0.33 0.20 - 0.80 K/cumm [facility] Comment:Testing performed by : [address] [address] Eosinophil abs 0.10 0.00 - 0.50 K/cumm [facility] Comment:Testing performed by : [address] [address] Basophil abs 0.04 0.00 - 0.10 K/cumm [facility] Comment:Testing performed by : [address] [address] Neutrophil pct 68.4 % [facility] Comment: Interpretive Data Percent cell count reference ranges are not reported, since discordance with absolute values may lead to misinterpretation of CBC data. Current Interpretive Data was last revised on 2018. Testing performed by: [address] [address] Imm gran pct 0.9 % [facility] Comment: Interpretive Data Percent cell count reference ranges are not reported, since discordance with absolute values may lead to misinterpretation of CBC data. Current Interpretive Data was last revised on 2018. Testing performed by: [address] [address] Lymphocyte pct 22.2 % [facility] Comment: Interpretive Data Percent cell count reference ranges are not reported, since discordance with absolute values may lead to misinterpretation of CBC data. Current Interpretive Data was last revised on 2018. Testing performed by: [address] [address] Monocyte pct 6.0 % [facility] Comment: Interpretive Data Percent cell count reference ranges are not reported, since discordance with absolute values may lead to misinterpretation of CBC data. Current Interpretive Data was last revised on 2018. Testing performed by: [address] [address] Eosinophil pct 1.8 % [facility] Comment: Interpretive Data Percent cell count reference ranges are not reported, since discordance with absolute values may lead to misinterpretation of CBC data. Current Interpretive Data was last revised on 2018. Testing performed by: [address] [address] Basophil pct 0.7 % [facility] Comment: Interpretive Data Percent cell count reference ranges are not reported, since discordance with absolute values may lead to misinterpretation of CBC data. Current Interpretive Data was last revised on 2018. Testing performed by: [address] [address] Blood 09/28/2025 9:13 AM MINE INSPECTOR FEDERAL 09/28/2025 9:16 AM MINE INSPECTOR FEDERAL us Francesco Montanez DO LAB BLOOD ORDERABLES Final R esult [facility] [address] [facility] Department [place] [address] * (ABNORMAL) CBC with auto differential (09/28/2025 9:13 AM MINE INSPECTOR FEDERAL) WBC 5.50 3.80 - 9.90 K/cumm Comment:Testing performed by : [address] [address] Hgb 13.2 11.9 - 15.5 g/dL [facility] Comment:Testing performed by : [address] [address] Hct 35.2(L) 35.6 - 45.5 % [facility] Comment:Testing performed by : [address] [address] Plt 157 150 - 400 K/cumm [facility] Comment:Testing performed by : [address] [address] MPV 9.2 9.1 - 12.3 fL [facility] Comment:Testing performed by : [address] [address] RBC 4.02 3.90 - 5.20 M/cumm [facility] Comment:Testing performed by : [address] [address] MCV 87.6 81.3 - 96.4 fL [facility] Comment:Testing performed by : [address] [address] MCH 32.8 27.1 - 33.3 pg [facility] Comment:Testing performed by : [address] [address] MCHC 37.5(H) 32.3 - 35.7 g/dL [facility] Comment:Testing performed by : [address], [address] RDW CV 12.4 11.1 - 14.9 % [facility] Comment:Testing performed by : [address] [address] RDW SD 39.8 35.7 - 48.1 fL [facility] Comment:Testing performed by : [address] [address] NRBC abs 0.00 0.00 - 0.01 K/cumm [facility] Comment:Testing performed by : [address] [address] ANC Prelim 3.76 1.50 - 6.50 K/cumm [facility] Comment: Interpretive Data The rapid ANC is a preliminary automated count and may vary from the final ANC (Neut Abs) reported in the WBC differential that follows. Current interpretive data was last revised 2025. Testing performed by: [address] [address] Blood 09/28/2025 9:13 AM MINE INSPECTOR FEDERAL 09/28/2025 9:16 AM MINE INSPECTOR FEDERAL Francesco Montanez DO LAB BLOOD ORDERABLES Final R [facility] Performing Organization Address City/[facility] Co de Phone Number [facility] [address] [place] [place] [address] * (ABNORMAL) Ferritin (09/28/2025 9:13 AM MINE INSPECTOR FEDERAL) Ferritin 160(H) 13 - 150 ng/mL Comment:Testing performed by : [facility], [address] [place] [address], [place]., [address] Blood 09/28/2025 9:13 AM MINE INSPECTOR FEDERAL 09/28/2025 11:45 AM MINE INSPECTOR FEDERAL Francesco Montanez DO LAB BLOOD ORDERABLES Final R [facility] Performing Organization Address [facility] Co de Phone Number [facility] [address] [place] [employer] [place] [address] from Last 3 Months Insurance [place] * Guarantor: Kayleen Hess Account Type Relation to Patient Date of Phone Billing Address Personal/Family Self 1960 [id number] [facility] [address] [place] [address] [employer] [place] Care Teams Brick Offbearer Relationship Specialty Start Date End Date Inés Lewis NP [address] [place] [phone] PCP - General Family Practice 10/07/22 Francesco Montanez DO [address] [place] [id number] Medical Oncologist/Marketing Program Coordinator Hematology and Oncology 08/16/19
--- OUTSIDE RECORDS SUMMARY | 2025-10-08 15:11 | XMS_ITS | Clinical Summary ---
Author Organization [facility] Address [address] [place] [address] Care Team Providers Care Instructor Modeling Name Role Phone Edith Bradley DAT Primary Care Provider [phone] Allergies No known active allergies Medications Calcium Carbonate-Vit D-Min (CALTRATE 600+D PLUS MINERALS) 600-800 MG-UNIT Tab Take 1 tablet by mouth. Active fexofenadine (CAROLINE) 180 MG tablet Take 1 tablet (180 mg total) by mouth daily. 90 tablet 1 4 Active polyethylene glycol (MIRALAX) 17 GM/SCOOP powderIndications:C onstipation by delayed colonic transit Take 17 g by mouth daily. Dissolve powder in 240 mL water 255 g 4 Active estradiol (ESTRACE) 0.1 MG/GM vaginal cream as needed. 4 Active hydrOXYzine (ATARAX) 25 MG tabletIndications:F ear of flying Take 1 tablet (25 mg total) by mouth daily as needed for Anxiety (fear of flying). 5 tablet 5 Active atorvastatin (LIPITOR) 40 MG tabletIndications:M ixed hyperlipidemia Take 1 tablet (40 mg total) by mouth nightly at bedtime. 90 tablet 1 5 Active dilTIAZem ER (TIAZAC) 240 MG 24 hr capsuleIndications: Essential hypertension Take 1 capsule (240 mg total) by mouth daily. 90 capsule 1 5 Active FARXIGA 10 MG tabletIndications:D iabetes mellitus in remission,CKD stage 3 due to type 2 diabetes mellitus (CMS/HCC HHS/HCC) Take 1 tablet (10 mg total) by mouth daily. 90 tablet 1 5 Active losartan (COZAAR) 100 MG tabletIndications:E ssential hypertension Take 1 tablet (100 mg total) by mouth daily. 90 tablet 1 5 Active potassium chloride CR (KLOR-CON M) 20 MEQ tabletIndications:D iuretic-induced hypokalemia Take 1 tablet (20 mEq total) by mouth daily. 90 tablet 1 5 Active tirzepatide (MOUNJARO) 5 MG/0.5ML injectionIndication s:Diabetes Mellitus Inject 5 mg into the skin once a week. Indications: Diabetes 3 mL 5 5 Active azelastine 0.1 % nasal sprayIndications:Se asonal allergic rhinitis due to other allergic trigger 1 spray by Nasal route 2 (two) times daily. 30 mL 1 5 Active Active Problems Problem Noted Date Diagnosed Date Constipation by delayed colonic transit 07/19/20 24 Diuretic-induced hypokalemia 05/10/2023 CKD stage 3 due to type 2 diabetes mellitus 01/16 History of colon polyps 11/30/2022 Type 2 diabetes mellitus wit hout complication, without long-term current use of insulin 02/05/2021 Allergic rhinitis, unspecifi ed seasonality, unspecified trigger 02/05/2021 Hemochromatosis, hereditary 08/28/2020 Essential hypertension 07/09/2020 Mixed hyperlipidemia 07/09/2020 Elevated ferritin level 08/09/2019 Resolved Problems Problem Noted Date Diagnosed Date Resolved Date Type 2 diabetes mellitus wit h hyperglycemia, without long-term current use of insulin 02/03/2023 02/21/2025 Encounters Date Type Department Care Team Description 08/27/2025 MyChart Message Enc [address] [place] [address] Edith Bradley FNP Pneumonia shot 07/17/2025 8:00 AM CDT Office Visit [address] [place] [address] Edith Bradley FNP Follow Up (Pt is here for a 6mo f/u, Pt states she is doing well) 07/17/2025 Scan [facility] Scanned, Doc [facility] 07/17/[address] [place] [address] Edith Bradley FNP Prior Authorization ([place] request Mounjaro 5 mg) 07/17/2025 Travel from Last 3 Months Immunizations Immunization Administration Dates Next Due MODERNA COVID-19, 6-11 Prima ry (DARK BLUE CAP) (previous 18+ monovalent booster), mRNA, LNP-S,PF, 50 mcg/ 0.50mL dose 04/08/2021,03/11/2021 Pneumococcal (Capvaxive - PCV 21) 08/27/2025 Shingrix 06/29/2022,04/30/2022 Td (Generic) 05/25/2016 Td (Tenivac) preservative free 05/25/2016 Td, Adsorbed, Preservative F ree, Adult Use, Lf Unspecified 05/25/2016 Tdap (Generic) 07/01/2006 Family History Medical History Relation Comments Diabetes Father Hypertension Father [place] Father at 62 Stroke Father Diabetes Mother Hypertension Mother Relation Status Comments Father Mother Social History Tobacco Use Types Packs/Day Years Used Date Smoking Tobacco: Former Smokeless Tobacco: Never Tobacco Cessation:Counseling Given: No Comments:10 years ago Alcohol Use Standard Drinks/Week [...] Date Recorded Patient Health Questionnaire-2 Score 0 02/21/2025 Comments No Sex and Gender Information Value Date Recorded Sex Assigned at Female 02/21/2025 10:09 AM CDT Legal Sex Female 7:08 PM CDT Gender Identity Not on file Sexual Orientation Not on file Last Filed Vital Signs Vital Sign Reading Time Taken Comments Blood Pressure 122/72 07/17/2025 8:05 AM CDT Pulse 73 07/17/2025 8:05 AM CDT Temperature 36.4 C (97.5 F) 07/17/2025 8:05 AM CDT Respiratory Rate 18 07/17/2025 8:05 AM CDT Oxygen Saturation 99% 07/17/2025 8:05 AM CDT Inhaled Oxygen Concentration - - Weight 74.8 kg (165 lb) 07/17/2025 8:05 AM CDT Height 165.1 cm (5' 5) 07/17/2025 8:05 AM CDT Body Mass Index 27.46 07/17/2025 8:05 AM CDT Plan of Treatment Health Maintenance Due Date Last Done Comments Cervical Cancer Screening Pap Smear (Age 30 to 64) Every 3 Years 1960 Cervical Cancer Screening Pap with HPV Testing (Age 30 to 64) Every 5 Years 1992 Influenza Adult (#1) 2025 Hemoglobin A1C 01/02/2026 07/05/2025, 01/17, 08/31/2024, Additional history exists Lipid Panel 02/06/2026 02/06/2025, 07/18, 06/01/2024, Additional history exists Cervical Cancer Screening with HPV 02/21/2026 Postponed from 1992 (Going to Outside Clinic) RSV Immunization or 60+ Years (1 - Risk 60-74 years 1-dose series) 02/21/2026 Postponed fro m 2022 (Patient Refused) DTaP, Tdap and Td Vaccines (5 - Td or Tdap) 05/25/2026 05/25/2016, 05/25/2016, 05/25/2016, Additional history exists Kidney Health Evaluation 07/05/2026 07/05/2025 Annual Physical 09/16/2026 Postponed fr om 1965 (Future Appointment) Mammogram Screening 10/18/2026 Postpone d from 2002 (Going to Outside Clinic) Diabetes: Retinopathy Eye Exam 05/29/2027 05/29/2025, 06/05/2024, 06/03/2023, Additional history exists Colorectal Cancer Screening Colonoscopy (10 Years) 07/09/2032 07/09/2022 Hepatitis C 02/21/2055 Postponed from 1980 (Patient Refused) COVID-19 Vaccine ( season) 2056 04/08/2021, 03/11/2021 Postponed from 06/18/2025 (Patient Refused) Zoster Vaccines Completed 06/29/2022, 04/30/2022 PHQ-2 (Physician [place]) Completed 02/21/2025 Pneumococcal Vaccine: 50+ Years Completed 08/27/2025 Hepatitis A Vaccines Aged Out No long er eligible based on patient's age to complete this topic Meningococcal B Vaccine Aged Out No l onger eligible based on patient's age to complete this topic Meningococcal Vaccine Aged Out No zenia arnie eligible based on patient's age to complete this topic RSV Immunizations Under 20 Months Aged Out No longer eligible based on patient's age to complete this topic Procedures Procedure Name Priority Date/Time Associated Diagnosis Comments HC HEMOGLOBIN FRACT QN Routine 07/05/2025 9:53 AM CDT Diabetes mellitus in remission DIABETIC RETINOPATHY EXAM (NEGATIVE)(SCAN ORDER) Routine 05/29/2025 HEALTH FAIR WITH LIPID Routine 02/06/2025 8:05 AM CDT COLONOSCOPY GENERIC (SCAN ORDER) 07/09/2022 from Last 3 Months or Most Recently Relevant to Health Maintenance Results * HEMOGLOBIN, GLYCOSYLATED (07/05/2025 9:53 AM CDT) HGB A1C 4.6 <5.7 % 07/05/2025 10:46 AM CDT [facility] Comment: INCREASED RISK OF DIABETES <5.7% NON-DIABETES 5.7-6.4% INCREASED RISK FOR FUTURE DIABETES > OR = 6.5 CONSISTENT WITH DIABETES STANDARDS OF MEDICAL CARE IN DIABETES-2010 DIABETES CARE, 33(SUPP 1): S1-S61,2009 ESTIMATED AVG GLUCOSE 85 mg/dL 07/05/2025 10:46 AM CDT [facility] 07/05/2025 9:53 AM CDT us Edith M Mirna [facility] Final Result [facility] () [facility] [address] [place] [address], [place] [phone] * DIABETIC RETINOPATHY EXAM (NEGATIVE) (05/29/2025) us [facility] Scanned SCANNING Final Resu lt [facility] * (ABNORMAL) HEALTH FAIR WITH LIPID (02/06/2025 8:05 AM CDT) GLUCOSE 93 70 - 99 MG/DL 02/06/2025 9:30 PM CDT [facility] BUN 17 7 - 18 MG/DL 02/06/2025 9:30 PM CDT [facility] SODIUM S/P/B 136 136 - 145 MMOL/L 02/06/2025 9:30 PM CDT [facility] POTASSIUM S/P/B 3.8 3.5 - 5.1 MMOL/L 02/06/2025 9:30 PM CDT [facility] CHLORIDE S/P/B 103 97 - 115 MMOL/L 02/06/2025 9:30 PM CDT [facility] CO2 25.1 21 - 32 MMOL/L 02/06/2025 9:30 PM CDT [facility] CREATININE S/P/B 1.23(H) 0.55 - 1.02 MG/DL 02/06/2025 9:30 PM CDT [facility] CALCIUM S/P/B 9.3 8.5 - 10.1 MG/DL 02/06/2025 9:30 PM CDT [facility] ALBUMIN S/P/B 4.3 3.4 - 5.0 G/DL 02/06/2025 9:30 PM CDT [facility] TOTAL PROTEIN S/P/B 7.4 6.4 - 8.2 G/DL 02/06/2025 9:30 PM T [facility] BILIRUBIN TOTAL S/P/B 0.7 0.2 - 1.2 MG/DL 02/06/2025 9:30 PM [facility] Comment: THIS ASSAY IS NOT RECOMMENDED FOR PATIENTS UNDERGOING TREATMENT WITH ELTROMBOPAG DUE TO THE POTENTIAL FOR FALSELY ELEVATED RESULTS. ALT 40 14 - 55 U/L 02/06/2025 9:30 PM T [facility] AST 39(H) 15 - 37 U/L 02/06/2025 9:30 PM [facility] ALKALINE PHOSPHATASE S/P/B 103 50 - 136 U/L 02/06/2025 9:30 PM [facility] A/G RATIO 1.4 1.0 - 2.0 RATIO 02/06/2025 9:30 PM [facility] GFR ESTIMATE 50(L) >90 ML/MIN/1. 73 M2 02/06/2025 9:30 PM [facility] Comment: NOTE: eGFR is not calculated for patients <18 years of age or gender unknown. This is an estimated GFR calculation using the new CKD EPI creatinine equation without race and so does not require a correction factor for race. This estimated GFR should not be used for calculating drug doses. CHOLESTEROL 175 <200 MG/DL 02/06/2025 9:30 PM T [facility] TRIGLYCERIDES 98 <150 MG/DL 02/06/2025 9:30 PM T [facility] HDL 77 >40.0 MG/DL 02/06/2025 9:30 PM [facility] LDL (CALCULATED) 78 <100 MG/DL 02/06/2025 9:30 PM T [facility] NON HDL CHOLESTEROL 98 <130 MG/DL 02/06/2025 9:30 PM CDT [facility] CHOL/HDL RATIO 2.3 0.0 - 4.5 02/06/2025 9:30 PM CDT [facility] VLDL CALCULATION 20 5 - 55 MG/DL 02/06/2025 9:30 PM T [facility] LIPID INTERPRETATION 02/06/2025 9:30 PM T [facility] Comment: [facility] CONCENSUS REPORT RECOMMENDATIONS: ADULT CHILD LOW RISK: CHOLESTEROL <200 <170 TRIGLYCERIDE <150 --- HDL >=60 --- LDL <100 <110 BORDERLINE: CHOLESTEROL 200-239 170-199 TRIGLYCERIDE 150-199 --- HDL 40-59 --- LDL 100-159 110-129 HIGH RISK: CHOLESTEROL >=240 >=200 TRIGLYCERIDE >=200 --- HDL <40 --- LDL >=160 >=130 TSH 1.030 0.358 - 3.74 uIU/ML 02/06/2025 9:30 PM CDT [facility] Comment: HIGH DOSES OF BIOTIN MAY INTERFERE WITH THIS TEST RESULT. CORRELATION TO CLINICAL HISTORY AND PRESENTATION RECOMMENDED. WBC 4.79 4.50 - 11.00 x10'3/uL 02/06/2025 12:17 PM CDT [facility] RBC 4.32 4.00 - 5.20 x10'6/uL 02/06/2025 12:17 PM CDT [facility] HGB 12.3 12.0 - 16.0 G/DL 02/06/2025 12:17 PM CDT [facility] HCT 36.7(L) 38.0 - 48.0 % 02/06/2025 12:17 PM CDT [facility] MCV 85.0 80.0 - 100.0 FL 02/06/2025 12:17 PM CDT [facility] MCH 28.5 26.0 - 34.0 PG 02/06/2025 12:17 PM CDT [facility] MCHC 33.5 31.0 - 37.0 G/DL 02/06/2025 12:17 PM CDT [facility] PLT 154 130 - 400 x10'3/uL 02/06/2025 12:17 PM CDT [facility] 02/06/2025 8:05 AM CDT Bautista Morales MD LABORATORY Final Result [facility] [address] [place] [address], [facility] [address] [place] [address], * COLONOSCOPY GENERIC (07/09/2022) 07/09/2022 Narrative 07/09/2022 Ordered by an unspecified provider. us Documents Scanned SCANNING Final Result from Last 3 Months or Most Recently Relevant to Health Maintenance Insurance [facility] Care Teams Instructor Modeling Relationship Specialty Start Date End Date Edith Bradley FNP PCP - General Nurse Practitioner Family 05/17/24
== END 2025-10-08 13:28 | disposition home or self-care (01) ==
LOC: ANHFOHIMG 13:30
PROVIDERS: PCP Nurse Practitioner Family; Visit Provider Nurse Practitioner Family
DX: Z78.0 Asymptomatic menopausal state (principal)
CPT/HCPCS: 77080